=== PATIENT | female | born 1935 | race Caucasian/White ===

== ENCOUNTER → 2020-09-30 | Outpatient (CLI) | payer MEDICARE ==
--- NOTE | 2020-09-30 13:32 | US ---
EXAMINATION TYPE: US carotid duplex BILAT DATE OF EXAM: 09/30/2020 COMPARISON: NONE CLINICAL HISTORY: Z87.898 Personal history of other specified.... TIA, syncope EXAM MEASUREMENTS: RIGHT: Peak Systolic Velocity (PSV) cm/sec ----- Right CCA: 59.2 ----- Right ICA: 71.3 ----- Right ECA: 62.0 ICA/CCA ratio: 1.2 RIGHT: End Diastole cm/sec ----- Right CCA: 12.6 ----- Right ICA: 18.2 ----- Right ECA: 4.2 LEFT: Peak Systolic Velocity (PSV) cm/sec ----- Left CCA: 79.0 ----- Left ICA: 65.6 ----- Left ECA: 54.9 ICA/CCA ratio: 0.8 LEFT: End Diastole cm/sec ----- Left CCA: 14.1 ----- Left ICA: 17.9 ----- Left ECA: 0.0 VERTEBRALS (direction of flow): Right Vertebral: Antegrade Left Vertebral: Antegrade Rhythm: Normal Bilateral intimal thickening, no elevated velocities, no significant stenosis. IMPRESSION: 1. Bilateral intimal thickening with no significant hemodynamic stenosis. Criteria for Assigning % of Stenosis / Diameter reduction (Estimation based on the indirect measurements of the internal carotid artery velocities (ICA PSV). 1. Normal (no stenosis)=ICA PSV < 125 cm/s: ratio < 2.0: ICA EDV<40 cm/s. 2. Less than 50% stenosis=ICA PSV < 125 cm/s: ratio < 2.0: ICA EDV<40 cm/s. 3. 50 to 69% stenosis=ICA PSV of 125 to 230 cm/s: ration 2.0 ? 4.0: ICA EDV 40-100 cm/s. 4. Greater than 70% stenosis to near occlusion= ICA PSV > 230 cm/s: ratio > 4.0: ICA EDV > 100 cm/s. 5. Near occlusion= ICA PSV velocities may be low or undetectable: variable ratio and ICA EDV. 6. Total occlusion=unable to detect flow.
--- NOTE | 2020-09-30 14:15 | ECHOF ---
Referral Reason:Z87.898 Personal history of other specified... MEASUREMENTS -------- HEIGHT: 162.6 cm WEIGHT: 68.0 kg BP: IVSd: 1.1 cm (0.6 - 1.1) LVIDd: 4.5 cm (3.9 - 5.3) LVPWd: 1.1 cm (0.6 - 1.1) IVSs: 1.9 cm LVIDs: 3.5 cm LVPWs: 1.1 cm LAESV Index (A-L): 23.23 ml/m Ao Diam: 2.9 cm (2.0 - 3.7) AV Cusp: 1.6 cm (1.5 - 2.6) LA Diam: 2.4 cm (2.7 - 3.8) MV EXCURSION: 18.395 mm (> 18.000) MV EF SLOPE: 33 mm/s (70 - 150) EPSS: 3.5 cm MV E Hermelindo: 0.53 m/s MV DecT: 374 ms MV A Hermelindo: 0.59 m/s MV E/A Ratio: 0.89 AR PHT: 925 ms RAP: 5.00 mmHg RVSP: 29.74 mmHg FINDINGS -------- This was a technically adequate study. The left ventricular size is normal. Left ventricular wall thickness is normal. Overall left vent ricular systolic function is mild-moderately impaired with, an EF between 40 - 45 %. Normal LAP. Gr annamaria 1 Diastolic Dysfunction. Basal inferoseptal LV wall motion is hypokinetic. Mid anteroseptal LV wall motion is hypokinetic. Apical septum LV wall motion is hypokinetic. The right ventricle is normal in size. The left atrial size is normal. Normal LA size by volume 22+/-6 ml/m2. The right atrial size is normal. Aortic valve is trileaflet and is mildly thickened. There is mild aortic regurgitation. The mitral valve is normal. Mild mitral regurgitation is present. The tricuspid valve appears structurally normal. Mild tricuspid regurgitation present. Right vent ricular systolic pressure is normal at < 35 mmHg. Trace/mild (physiologic) pulmonic regurgitation. The aortic root size is normal. Normal inferior vena cava with normal inspiratory collapse consistent with estimated right atrial pre ssure of 5 mmHg. There is a small, generalized pericardial effusion present. CONCLUSIONS -------- 1. The left ventricular size is normal. 2. Left ventricular wall thickness is normal. 3. Overall left ventricular systolic function is mild-moderately impaired with, an EF between 40 - 45 %. 4. Normal LAP. Grade 1 Diastolic Dysfunction. 5. Basal inferoseptal LV wall motion is hypokinetic. 6. Mid anteroseptal LV wall motion is hypokinetic. 7. Apical septum LV wall motion is hypokinetic. 8. Aortic valve is trileaflet and is mildly thickened. 9. There is mild aortic regurgitation. 10. Mild mitral regurgitation is present. 11. Mild tricuspid regurgitation present. 12. Trace/mild (physiologic) pulmonic regurgitation. 13. There is a small, generalized pericardial effusion present. TRACTOR OPERATOR [employer]AS[employer]EVELING: Ramona Pimentel RDCS
== END | disposition home or self-care (01) ==
LOC: RADECHMAIN 12:10
PROVIDERS: ATTEND Internal Medicine Cardiovascular Disease
DX: I31.3 Pericardial effusion (noninflammatory) (principal); I08.3 Combined rheumatic disorders of mitral, aortic and tricuspid valves; I37.1 Nonrheumatic pulmonary valve insufficiency; I50.1 Left ventricular failure, unspecified; I50.30 Unspecified diastolic (congestive) heart failure; I77.89 Other specified disorders of arteries and arterioles; Z87.898 Personal history of other specified conditions
CPT/HCPCS: 93306; 93880

== ENCOUNTER → 2020-10-26 | Outpatient (CLI) | payer MEDICARE ==
--- NOTE | 2020-10-26 14:27 | MR ---
EXAMINATION TYPE: MR brain wo/w con DATE OF EXAM: 10/26/2020 COMPARISON: NONE HISTORY: Left side weakness, memory loss, history of colon cancer 25 years ago TECHNIQUE: Multiplanar, multisequence images of the brain and brainstem is performed without and with IV contras t, utilizing 7 mL intravenous Gadavist . FINDINGS: Exam slightly suboptimal due to motion artifact degradation. Diffusion weighted images demo nstrate no evidence of a recent infarct or other diffusion abnormality. There is no worrisome extra- axial fluid collection. There is diffuse ventricular and sulcal prominence. There are focal and confl uent areas of T2 hyperintensity greatest in the deep and periventricular white matter. Midline structures demonstrate normal morphology. Corpus callosal thinning is seen. The craniocervica l junction appears within normal limits. Post contrast images demonstrate fairly homogeneous enhanci ng 1.6 cm left frontal extra-axial lesion consistent with meningioma sagittal image 43. Local mass ef fect is present. No suspicious enhancing intraparenchymal masses. The visualized sinuses are clear. A rtifact distorts the level of bilateral globes. IMPRESSION: There is [id number] diffuse cerebral atrophy with advanced chronic small vessel isc hemic changes. There is incidental 1.6 cm left frontal meningioma with local mass effect. No suspicio us enhancing intraparenchymal masses.
== END | disposition home or self-care (01) ==
LOC: RADMRIMAIN 12:50
PROVIDERS: ATTEND Neurological Surgery
DX: I67.82 Cerebral ischemia (principal); G31.9 Degenerative disease of nervous system, unspecified; D32.9 Benign neoplasm of meninges, unspecified
CPT/HCPCS: 70553; A9585

== ENCOUNTER 2021-06-26 11:33 | Emergency (ER) | payer MEDICARE ==
[2021-06-26 11:51] LABS: Basophils # (A) 0.1 k/uL (0-0.2); Basophils % (A) 1 %; Eosinophils # (A) 0.1 k/uL (0-0.7); Eosinophils % (A) 1 %; HCT 35.2 % (34.0-46.0); HGB 11.7 gm/dL (11.4-16.0); Lymphocytes # (A) 1.9 k/uL (1.0-4.8); Lymphocytes % (A) 32 %; MCH 27.5 pg (25.0-35.0); MCHC 33.3 g/dL (31.0-37.0); MCV 82.7 fL (80.0-100.0); Monocytes # (A) 0.3 k/uL (0-1.0); Monocytes % (A) 5 %; Neutrophils # (A) 3.4 k/uL (1.3-7.7); Neutrophils % (A) 58 %; Platelet Count 160 k/uL (150-450); RBC 4.26 m/uL (3.80-5.40); RDW 13.4 % (11.5-15.5); WBC 5.9 k/uL (3.8-10.6)
--- NOTE | 2021-06-26 12:02 | ED ---
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 Family states that the patient had complete weakness and facial droop on her left side which started around 10:45 AM. Patient had some slurred speech. Mild confusion. She is on Eliquis however family is unsure why. She took her dose last night and has not missed any doses. They state that it could be due to her previous history of CVA however they do believe that she has had a history of DVT as well. Patient is a poor historian and used to live in [place]. They recently became involved in her care. She has not had any fevers or recent head trauma. No history of hemorrhagic stroke. She denies any chest pain or shortness of breath. The patient is a very poor historian and therefore the HPI is limited - Related Data Home Medications: Home Medications Medication Instructions Recorded Confirmed Apixaban [Eliquis] 5 mg PO HS 06/26/21 06/26/21 Ascorbic Acid [Vitamin C] 500 mg PO DAILY 06/26/21 06/26/21 Cholecalciferol [Vitamin D3 (25 25 mcg PO DAILY 06/26/21 06/26/21 Mcg = 1000 Iu)] Loratadine [Claritin] 10 mg PO HS 06/26/21 06/26/21 Metoprolol Tartrate [Lopressor] 25 mg PO BID 06/26/21 06/26/21 Metoprolol Tartrate [Lopressor] 50 mg PO BID 06/26/21 06/26/21 Olmesartan Medoxomil 40 mg PO DAILY 06/26/21 06/26/21 Rosuvastatin [Crestor] 20 mg PO HS 06/26/21 06/26/21 Allergies/Adverse Reactions: Allergies Allergy/AdvReac Type Severity Reaction Status Date / Time No Known Allergies Allergy Verified 06/26/21 12:33 Review of Systems ROS Statement: Those systems with pertinent positive or pertinent negative responses have been documented in the HPI. ROS Other: All systems not noted in ROS Statement are negative. General Exam Limitations: altered mental status General appearance: alert Head exam: Present: atraumatic, normocephalic, other (left facial droop) Eye exam: Present: PERRL, other (hemineglect on the left). Absent: scleral icterus, conjunctival injection, periorbital swelling ENT exam: Present: normal exam, mucous membranes moist Neck exam: Present: normal inspection. Absent: tenderness, meningismus, lymphadenopathy Respiratory exam: Present: normal lung sounds bilaterally. Absent: respiratory distress, wheezes, rales, rhonchi, stridor Cardiovascular Exam: Present: regular rate, normal rhythm, normal heart sounds. Absent: systolic murmur, diastolic murmur, rubs, gallop, clicks GI/Abdominal exam: Present: soft, normal bowel sounds. Absent: distended, tenderness, guarding, rebound, rigid Extremities exam: Present: other (drift left upper and left lower extremity. Decreased endoscopic technician strength in the left hand.) Neurological exam: Present: alert, oriented X3 Psychiatric exam: Present: normal affect, normal mood Skin exam: Present: warm, dry, intact, normal color. Absent: rash Stroke MDM - Lab Data Result diagrams: 06/26/21 11:37 06/26/21 11:37 Lab Results 06/26/21 06/26/21 06/26/21 Range/Units 11:37 11:37 11:37 WBC 5.9 (3.8-10.6) k/uL RBC 4.26 (3.80-5.40) m/uL Hgb 11.7 (11.4-16.0) gm/dL Hct 35.2 (34.0-46.0) % MCV 82.7 (80.0-100.0) fL MCH 27.5 (25.0-35.0) pg MCHC 33.3 (31.0-37.0) g/dL RDW 13.4 (11.5-15.5) % Plt Count 160 (150-450) k/uL MPV 9.0 Neutrophils % 58 % Lymphocytes % 32 % Monocytes % 5 % Eosinophils % 1 % Basophils % 1 % Neutrophils # 3.4 (1.3-7.7) k/uL Lymphocytes # 1.9 (1.0-4.8) k/uL Monocytes # 0.3 (0-1.0) k/uL Eosinophils # 0.1 (0-0.7) k/uL Basophils # 0.1 (0-0.2) k/uL PT 10.4 (9.0-12.0) sec INR 1.0 (<1.2) APTT 22.3 (22.0-30.0) sec Sodium 138 (137-145) mmol/L Potassium 4.1 (3.5-5.1) mmol/L Chloride 109 H (98-107) mmol/L Carbon Dioxide 22 (22-30) mmol/L Anion Gap 7 mmol/L BUN 23 H (7-17) mg/dL Creatinine 0.89 (0.52-1.04) mg/dL Est GFR (CKD-EPI)AfAm 68 (>60 ml/min/1.73 sqM) Est GFR (CKD-EPI)NonAf 59 (>60 ml/min/1.73 sqM) Glucose 96 (74-99) mg/dL Calcium 9.5 (8.4-10.2) mg/dL Total Bilirubin 0.6 (0.2-1.3) mg/dL AST 27 (14-36) U/L ALT 19 (4-34) U/L Alkaline Phosphatase 49 (38-126) U/L Troponin I (0.000-0.034) ng/mL Total Protein 6.2 L (6.3-8.2) g/dL Albumin 3.9 (3.5-5.0) g/dL 06/26/21 Range/Units 11:37 WBC (3.8-10.6) k/uL RBC (3.80-5.40) m/uL Hgb (11.4-16.0) gm/dL Hct (34.0-46.0) % MCV (80.0-100.0) fL MCH (25.0-35.0) pg MCHC (31.0-37.0) g/dL RDW (11.5-15.5) % Plt Count (150-450) k/uL MPV Neutrophils % % Lymphocytes % % Monocytes % % Eosinophils % % Basophils % % Neutrophils # (1.3-7.7) k/uL Lymphocytes # (1.0-4.8) k/uL Monocytes # (0-1.0) k/uL Eosinophils # (0-0.7) k/uL Basophils # (0-0.2) k/uL PT (9.0-12.0) sec INR (<1.2) APTT (22.0-30.0) sec Sodium (137-145) mmol/L Potassium (3.5-5.1) mmol/L Chloride (98-107) mmol/L Carbon Dioxide (22-30) mmol/L Anion Gap mmol/L BUN (7-17) mg/dL Creatinine (0.52-1.04) mg/dL Est GFR (CKD-EPI)AfAm (>60 ml/min/1.73 sqM) Est GFR (CKD-EPI)NonAf (>60 ml/min/1.73 sqM) Glucose (74-99) mg/dL Calcium (8.4-10.2) mg/dL Total Bilirubin (0.2-1.3) mg/dL AST (14-36) U/L ALT (4-34) U/L Alkaline Phosphatase (38-126) U/L Troponin I <0.012 (0.000-0.034) ng/mL Total Protein (6.3-8.2) g/dL Albumin (3.5-5.0) g/dL - Medical Decision Making Upon arrival the patient was placed into trauma bay 1. Thorough history and physical exam was performed. NIH is noted to be 16. Patient has weakness in the left upper extremity, left lower extremity. She has complete antoine-neglect of her left visual field and left-sided facial droop. Patient immediately goes over for CT and CT angiography. Imaging is reviewed. Patient does have a left temporal meningioma. No acute occlusion, significant stenosis, large aneurysm o r dissection. I did speak with the radiologist in regards to these reads. I also spoke with Dr. Muniz. He reports that the patient is not a TPA candidate as she is already on anticoagulation. There is no large vessel occlusion. The patient is reevaluated and does have an NIH which has improved to 4. I did discuss results with family. The patient does have deterioration in her condition and returns to having an NIH of 14 with left hemiparesis. Only the strength in her left upper extremity is preserved at this time. I did call and speak with Dr. Muniz who believes that this is not stroke related but seizure related. Because of this the patient is given 500 mg of Keppra. I dis cussed diagnosis, differential treatment options. At this time the patient is requesting transfer to [facility] as she has see Dr. Bustillos in office for her history of strokes and vascular dementia. The patient is originally accepted at their facility however the family then changestheir mind and state that they want to go to [facility]. [facility] transfer is cancelled. I spoke with Dr. Gay at [facility] stating that patients familys request is transferred to their facility. She does accept transfer and patient is transfer in stable condition with NIH of 14. EKG demonstrates a normal sinus rhythm with a ventricular rate of 61. [place] interval 122. QRS 156. QTC of 475. Left bundle branch block. Negative for sgarbossa criteria 06/26/21 12:54 Course Vital Signs 06/26/21 06/26/21 06/26/21 11:58 12:21 12:30 Temperature 97.5 F L Pulse Rate 57 L 55 L 55 L Respiratory 18 23 26 H Rate Blood Pressure 102/74 121/73 121/73 O2 Sat by Pulse 97 98 94 L Oximetry 06/26/21 06/26/21 06/26/21 12:42 12:45 13:00 Temperature Pulse Rate 55 L 55 L 57 L Respiratory 18 22 22 Rate Blood Pressure 141/111 141/111 137/119 O2 Sat by Pulse 96 97 96 Oximetry 06/26/21 06/26/21 06/26/21 13:15 13:30 13:33 Temperature Pulse Rate 57 L 57 L 58 L Respiratory 18 23 18 Rate Blood Pressure 148/67 145/62 151/84 O2 Sat by Pulse 94 L 96 Oximetry 06/26/21 06/26/21 13:45 14:00 Temperature Pulse Rate 57 L 55 L Respiratory 22 22 Rate Blood Pressure 151/84 154/69 O2 Sat by Pulse 94 L 95 Oximetry - Reevaluation(s) Reevaluation #1: 06/26/21 12:[address] Muniz - not a TPA candidate due to already on anticoagulation Reevaluation #2: Spoke with radiologist the CT of the head is negative. No occlusion 06/26/21 12:28 Reevaluation #3: Patient has recurrence left-sided hemiparesis. NIH score is 14. Dr. Muniz paged. Call returned - believes symptoms are more consistent with seizure activity over stroke 06/26/21 12:40 Disposition Clinical Impression: Cerebrovascular accident (CVA) Disposition: OTHER INSTITUTION NOT DEFINED Condition: Stable Is patient prescribed a controlled substance at d/c from ED?: No Referrals: Idania Infante MD [Primary Care Provider] - 1-2 days - Out of Hospital Transfer - Req. Specs Out of Hospital Transfer - Requested Specifics: Other Emergency Center ([address])
[2021-06-26 12:08] LABS: Albumin 3.9 g/dL (3.5-5.0); Calcium 9.5 mg/dL (8.4-10.2); Total Bilirubin 0.6 mg/dL (0.2-1.3); Total Protein 6.2 g/dL (6.3-8.2)
[2021-06-26 12:10] LABS: Partial Thromboplastin Time 22.3 sec (22.0-30.0); Prothrombin Time 10.4 sec (9.0-12.0)
[2021-06-26 12:11] VITALS: TEMP 97.5
[2021-06-26 12:24] LABS: Potassium 4.1 mmol/L (3.5-5.1)
--- NOTE | 2021-06-26 12:35 | CT ---
EXAMINATION TYPE: CT brain wo con for TPA. CT angiogram head and neck. DATE OF EXAM: 06/26/2021 COMPARISON: None HISTORY: CODE STROKE. Complete left hemiparesis. Symptoms resolved at time of dictation per emergency department provider. TECHNIQUE: CT scan of the head without contrast CT DLP: 1096.8 mGycm Automated exposure control for dose reduction was used. FINDINGS: CT head without contrast: No evidence for acute intracranial hemorrhage, midline shift or mass effect. Llamas-white matter differ entiation is preserved. Posterior fossa contents are acutely intact. There is an extra-axial predominantly calcified mass along the left frontal convexity likely represen ting a meningioma. There is generalized brain volume loss with prominence of the ventricles and CSF spaces. There is sim dence for chronic microvascular ischemic changes and bilateral basal ganglia lacunar infarcts. No acute intraorbital, osseous or soft tissue abnormality seen. Paranasal sinuses and mastoid air cells are well aerated. Atherosclerotic calcifications are seen in the intracranial internal carotid arteries. CT angiogram head and neck: Atherosclerotic calcifications are seen in the intrathoracic aorta aortic arch. Soft and calcific shania ques are present at the region of the right brachiocephalic artery, left common carotid artery and le ft subclavian artery. There is mild narrowing at the bilateral carotid bifurcation. The right external carotid artery is mi ldly narrowed but patent. Internal carotid arteries extracranial segments are. Both vertebral arterie s are patent and codominant. The proximal segments of the bilateral CARLEEN, MCA and senior marketing engineer are patent. There is origin of the rig ht CONTRACT SPECIALIST. Left posterior communicating artery is patent. No obvious intracranial aneurysm or evidence o f dissection. The thyroid gland is multinodular and has some calcifications. Lung apices are glossy are unremarkabl e. Parapharyngeal fat is maintained. No cervical lymphadenopathy. Mild scoliosis seen in the spine. Mild to moderate degenerative changes are also noted in the spine s uboptimal in evaluation due to technique. No acute displaced fracture. IMPRESSION: 1. NO EVIDENCE OF ACUTE INTRACRANIAL HEMORRHAGE OR MASS EFFECT. 2. CALCIFIED LEFT EXTRA-AXIAL MASS LIKELY MENINGIOMA. 3. NO ACUTE OCCLUSION, SIGNIFICANT STENOSIS, LARGE ANEURYSM OR OBVIOUS DISSECTION IN THE CERVICAL OF MONTES TO EXPLAIN PATIENT'S SYMPTOMS. 4. MILD NARROWING AT THE BILATERAL CAROTID BIFURCATION AND PROXIMAL INTERNAL CAROTID ARTERY SECONDARY TO SOFT AND CALCIFIC PLAQUES. I called the emergency department provider at time of dictation to discuss case. This was at 12:25 PM 06/26/2021.
[2021-06-26] MEDS ORDERED: levETIRAcetam IV 500 MG in SODIUM CHLORIDE 0.9% 100 ML IVPB STA (13:27)
[2021-06-26] MEDS ORDERED: ASPIRIN 325 MG TAB PO STA (13:28)
[2021-06-26] MEDS ORDERED: SODIUM CHLORIDE 0.9% 1,000 ML IV SCH (13:30)
[2021-06-26] MEDS ORDERED: ATORVASTATIN 40 MG TAB PO STA (14:10)
--- NOTE | 2021-06-26 14:18 | XR ---
EXAMINATION TYPE: XR chest 2V DATE OF EXAM: 06/26/2021 COMPARISON: None HISTORY: 86-year-old female confusion, altered mental status TECHNIQUE: AP and lateral views FINDINGS: Heart is upper limits of normal in size. Atherosclerotic calcifications. Diffuse interstitial promine nce. No consolidation or pleural effusion. IMPRESSION: Interstitial density could in part related to body habitus and portable technique. Correlate to exclu de bronchitis, chronic asthma, or early atypical pneumonia.
[2021-06-26 15:49] VITALS: BP 154/71; PULSE 51; RESP 23
== END 2021-06-26 15:47 | disposition other institution (70) ==
LOC: EC 11:33
DX: I63.9 Cerebral infarction, unspecified (principal); R29.716 NIHSS score 16; F03.90 Unspecified dementia, unspecified severity, without behavioral disturbance, psychotic disturbance, mood disturbance, and anxiety; Z79.01 Long term (current) use of anticoagulants; Z79.899 Other long term (current) drug therapy
CPT/HCPCS: 36415; 93005; 80053; 84484; 85025; 85610; 85730; 71046; 70496; 70450; 70498; 96365; 99285; J1953; Q9967

== ENCOUNTER → 2021-10-05 | Outpatient (CLI) | payer MEDICARE | END | disposition home or self-care (01) | LOC: RADCTMAIN 14:08 | PROVIDERS: ATTEND Internal Medicine Cardiovascular Disease | DX: Z53.9 Procedure and treatment not carried out, unspecified reason (principal) ==

== ENCOUNTER 2022-10-12 14:26 | Emergency (ER) | payer MEDICARE ==
[2022-10-12 15:11] VITALS: BP 171/64; PULSE 88; RESP 18; TEMP 98.4
--- NOTE | 2022-10-12 15:35 | XR ---
EXAMINATION TYPE: XR chest 2V DATE OF EXAM: 10/12/2022 COMPARISON: 06/26/21 HISTORY: Shortness of breath TECHNIQUE: Frontal and lateral views of the chest are obtained. FINDINGS: Scattered senescent parenchymal changes noted. Hyperinflation compatible with COPD. No evidence for infiltrate. No evidence for atelectasis. Heart size is stable. Mediastinal structures are stable and grossly unremarkable. No evidence for hilar prominence. Degenerative changes dorsal spine. IMPRESSION: 1. No evidence for acute pulmonary disease.
--- NOTE | 2022-10-12 18:16 | ED ---
General Adult HPI - General Chief complaint: Upper Respiratory Infection Stated complaint: Fever,Congestion,Covid+ Time Seen by Provider: 10/12/22 17:49 Source: patient Mode of arrival: ambulatory Limitations: no limitations - History of Present Illness Initial comments: This is an 87-year-old female who was brought into the emergency department by her daughter for a cough. The patient reported that she stated she had a cough for the last 1 week and seemed worse over the last 1 day so she went to be seen in the emergency department. The patient did have a home over 19 test that was positive so she came to emergency department to make sure he was okay. The patient does live in an assisted living facility with 3 other residents reportedly been seen for a cough today. The patient was however resting in bed comfortably without any acute pain or distress. The patient did not have any tachypnea, shortness of breath nor any complaints. The patient denied any fevers and chills. - Related Data Home Medications Medication Instructions Recorded Confirmed Apixaban [Eliquis] 5 mg PO HS 06/26/21 06/26/21 Ascorbic Acid [Vitamin C] 500 mg PO DAILY 06/26/21 06/26/21 Cholecalciferol [Vitamin D3 (25 25 mcg PO DAILY 06/26/21 06/26/21 Mcg = 1000 Iu)] Loratadine [Claritin] 10 mg PO HS 06/26/21 06/26/21 Metoprolol Tartrate [Lopressor] 25 mg PO BID 06/26/21 06/26/21 Metoprolol Tartrate [Lopressor] 50 mg PO BID 06/26/21 06/26/21 Olmesartan Medoxomil 40 mg PO DAILY 06/26/21 06/26/21 Rosuvastatin [Crestor] 20 mg PO HS 06/26/21 06/26/21 Allergies Allergy/AdvReac Type Severity Reaction Status Date / Time No Known Allergies Allergy Verified 10/12/22 15:11 Review of Systems ROS Statement: Those systems with pertinent positive or pertinent negative responses have been documented in the HPI. ROS Other: All systems not noted in ROS Statement are negative. Past Medical History Past Medical History: CVA/TIA, Dementia, Pneumonia Additional Past Medical History / Comment(s): cva x 2 History of Any Multi-Drug Resistant Organisms: None Reported Past Surgical History: Appendectomy, Joint Replacement, Orthopedic Surgery Past Psychological History: No Psychological Hx Reported Smoking Status: Former smoker Past Alcohol Use History: Rare Past Drug Use History: None Reported General Exam Limitations: no limitations General appearance: alert, in no apparent distress Head exam: Present: atraumatic, normocephalic Eye exam: Present: normal appearance, PERRL Pupils: Present: normal accommodation ENT exam: Present: normal exam, normal oropharynx, mucous membranes moist Neck exam: Present: normal inspection, full ROM Respiratory exam: Present: normal lung sounds bilaterally Cardiovascular Exam: Present: regular rate, normal rhythm, normal heart sounds GI/Abdominal exam: Present: soft, normal bowel sounds Extremities exam: Present: normal inspection, full ROM Back exam: Present: normal inspection, full ROM Neurological exam: Present: alert, oriented X3, CN II-XII intact Psychiatric exam: Present: normal affect, normal mood Skin exam: Present: warm, dry Course Vital Signs 10/12/22 15:07 Temperature 98.4 F Pulse Rate 88 Respiratory 18 Rate Blood Pressure 171/64 O2 Sat by Pulse 98 Oximetry Medical Decision Making - Medical Decision Making The patient was seen and evaluated emergency department. Physical exam, the patient was resting in bed without any acute distress. Vital signs admission were stable and within normal limits. Laboratory workup was obtained and a chest x-ray was also obtained in triage. The patient was COVID-19 positive and chest x-ray did not show any intrathoracic pathology. Due to the patient's normal vital signs and in no further complaints, the patient was deemed stable for discharge. The patient and her daughter were advised to continue to monitor the patient's respiratory status as well as oxygen saturation. She was living in an assisted living facility and the daughter was told to relay this message to the facility. The patient and her daughter had all their questions answered appropriately. They're also advised report back to the emergency department if she any worsening shortness of breath or difficulty breathing. They're agreeable to this and all her questions were answered. The patient was discharged home in stable condition. - Lab Data Lab Results 10/12/22 Range/Units 15:16 Influenza Type A (PCR) Not Detected (Not Detectd) Influenza Type B (PCR) Not Detected (Not Detectd) RSV (PCR) Not Detected (Not Detectd) SARS-CoV-2 (PCR) Detected A (Not Detectd) Disposition Clinical Impression: COVID-19 Disposition: HOME SELF-CARE Condition: Stable Instructions (If sedation given, give patient instructions): COVID-19 (Coronavirus Disease 2019) (ED) Is patient prescribed a controlled substance at d/c from ED?: No Referrals: Petros Argueta MD [Primary Care Provider] - 1-2 days Time of Disposition: 18:10
== END 2022-10-12 18:21 | disposition home or self-care (01) ==
LOC: EC 14:26
DX: U07.1 COVID-19 (principal); I63.9 Cerebral infarction, unspecified; Z87.891 Personal history of nicotine dependence
CPT/HCPCS: 71046; 87636; 99283

== ENCOUNTER → 2022-12-05 | Outpatient (CLI) | payer MEDICARE ==
--- NOTE | 2022-12-05 16:30 | MR ---
EXAMINATION TYPE: MR brain wo/w con DATE OF EXAM: 12/05/2022 COMPARISON: Prior MRI October 26, 2020 HISTORY: F/U comparison meningioma, memory loss. TECHNIQUE: Multiplanar, multisequence images of the brain and brainstem is performed without and with IV contras t, utilizing 7 mL intravenous Gadavist . FINDINGS: Diffusion weighted images demonstrate no evidence of a recent infarct or other diffusion ab normality. There is moderate moderate ventricular and sulcal prominence redemonstrated. There are se enoch focal and confluent areas of T2 hyperintensity throughout the white matter redemonstrated. Midline structures redemonstrate normal morphology. The craniocervical junction remains within sariah l limits. Post contrast images redemonstrate peripheral 1.5 x 1.4 cm homogeneous enhancing mass cons istent with meningioma left frontal region axial image 22. The dural venous sinuses remaining patent. The visualized sinuses are clear and the globes are intact. IMPRESSION: Moderate diffuse cerebral atrophy and severe chronic small vessel ischemic change redemon strated. There is 1.5 cm peripheral left frontal meningioma are redemonstrated. No significant change from prior MRI.
== END | disposition home or self-care (01) ==
LOC: RADMRIMAIN 15:18
PROVIDERS: ATTEND Psychiatry & Neurology Neurology
DX: D32.0 Benign neoplasm of cerebral meninges (principal); G31.9 Degenerative disease of nervous system, unspecified; I67.82 Cerebral ischemia; F01.50 Vascular dementia, unspecified severity, without behavioral disturbance, psychotic disturbance, mood disturbance, and anxiety; R41.3 Other amnesia
CPT/HCPCS: 70553; A9585

== ENCOUNTER 2023-03-03 15:28 | Emergency (ER) | payer MEDICARE ==
[2023-03-03] MEDS ORDERED: SODIUM CHLORIDE 0.9% 500 ML 500 ML IV STA (15:34)
[2023-03-03 15:37] VITALS: RESP 16
[2023-03-03 15:42] LABS: Glucose,Whole Blood 148 mg/dL (70-110)
--- NOTE | 2023-03-03 15:45 | ED ---
General Adult HPI - General Chief complaint: Neuro Symptoms/Deficit Stated complaint: TIA Time Seen by Provider: 03/03/23 15:34 Source: patient, EMS, RN notes reviewed, old records reviewed Mode of arrival: EMS Limitations: no limitations - History of Present Illness Initial comments: 87 yo female presenting with chief complaint of lightheadedness and worsening left-sided facial droop. Patient has previous history of CVA with residual left-sided facial droop and this was noted at about 1 PM to be worse than normal. Patient states she was lightheaded at this time. No headache. No chest pain. No limb numbness or weakness. 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 - Related Data Home Medications Medication Instructions Recorded Confirmed Apixaban [Eliquis] 5 mg PO BID 06/26/21 03/03/23 Ascorbic Acid [Vitamin C] 1,000 mg PO DAILY 06/26/21 03/03/23 Cholecalciferol [Vitamin D3 (25 50 mcg PO DAILY 06/26/21 03/03/23 Mcg = 1000 Iu)] Loratadine [Claritin] 10 mg PO DAILY PRN 06/26/21 03/03/23 Metoprolol Tartrate [Lopressor] 25 mg PO BID 06/26/21 03/03/23 Aspirin EC [Ecotrin Low Dose] 81 mg PO HS 03/03/23 03/03/23 Rosuvastatin Calcium 5 mg PO HS 03/03/23 03/03/23 Sacubitril/Valsartan [Entresto 24 1 tab PO BID 03/03/23 03/03/23 mg-26 mg Tablet] Allergies Allergy/AdvReac Type Severity Reaction Status Date / Time No Known Allergies Allergy Verified 03/03/23 15:39 Review of Systems ROS Statement: Those systems with pertinent positive or pertinent negative responses have been documented in the HPI. ROS Other: All systems not noted in ROS Statement are negative. Past Medical History Past Medical History: CVA/TIA, Dementia, Pneumonia Additional Past Medical History / Comment(s): cva x 2 History of Any Multi-Drug Resistant Organisms: None Reported Past Surgical History: Appendectomy, Joint Replacement, Orthopedic Surgery Past Psychological History: No Psychological Hx Reported Smoking Status: Former smoker Past Alcohol Use History: Rare Past Drug Use History: None Reported General Exam Limitations: no limitations General appearance: alert, in no apparent distress Head exam: Present: atraumatic, normocephalic Eye exam: Present: normal appearance, PERRL, EOMI ENT exam: Present: normal exam Neck exam: Present: normal inspection. Absent: tenderness Respiratory exam: Present: normal lung sounds bilaterally. Absent: respiratory distress, wheezes Cardiovascular Exam: Present: regular rate, normal rhythm GI/Abdominal exam: Present: soft. Absent: distended, tenderness, guarding Extremities exam: Present: normal inspection, normal capillary refill. Absent: pedal edema Neurological exam: Present: alert, oriented X3, other (NIH of 1 which is baseline, for mild left-sided facial droop. Normal speech.) Psychiatric exam: Present: normal affect, normal mood Skin exam: Present: warm, dry, intact Course Vital Signs 03/03/23 15:31 Temperature 97.4 F L Pulse Rate 82 Respiratory 16 Rate Blood Pressure 152/65 O2 Sat by Pulse 96 Oximetry EKG Findings - EKG Comments: EKG Findings:: EKG: Sinus rhythm with left bundle branch block, history of left bundle branch block, rate of 79, SD interval 174, QRS duration 165, QTC 453 no acute change compared to prior. Medical Decision Making - Medical Decision Making Was pt. sent in by a medical professional or institution (, PA, ICE DELIVERY DRIVER, urgent care, hospital, or halfway...) When possible be specific @ -No Did you speak to anyone other than the patient for history (EMS, parent, family, police, friend...)? What history was obtained from this source @ -Case discussed with paramedics and patient's daughter who is at bedside Did you review nursing and triage notes (agree or disagree)? Why? @ -I reviewed and agree with nursing and triage notes Were old charts reviewed (outside hosp., previous admission, EMS record, old EKG, old radiological studies, urgent care reports/EKG's, halfway records)? Report findings @ -Reviewed previous admissions Differential Diagnosis (chest pain, altered mental status, abdominal pain women, abdominal pain men, vaginal bleeding, weakness, fever, dyspnea, syncope, heada andrew, dizziness, GI bleed, back pain, seizure, CVA, palpatations, mental health, musculoskeletal)? @ -Differential CVA Ischemic stroke, hemorrhagic stroke, brain tumor, atypical migraine, Wernicke's encephalopathy, seizure, multiple sclerosis, meningitis, encephalitis, hypoglycemia, Guillain-Amado, electrolytes disturbance, myasthenia gravis.... This is not meant to be an all-inclusive list EKG interpreted by me (3pts min.). @ -As above X-rays interpreted by me (1pt min.). @ -Chest x-ray negative for acute cardiopulmonary findings CT interpreted by me (1pt min.). @ -CT brain showing age-related changes without intracranial hemorrhage or mass effect, calcified meningioma, chronic small vessel disease and age-related atrophy U/S interpreted by me (1pt. min.). @ -None done What testing was considered but not performed or refused? (CT, X-rays, U/S, labs)? Why? @ -None What meds were considered but not given or refused? Why? @ -None Did you discuss the management of the patient with other professionals (professionals i.e. , PA, ICE DELIVERY DRIVER, lab, RT, psych nurse, social worker health services, wellfield technician, teacher, special technical operations officer, case management coordinator)? Give summary @ -No Was smoking cessation discussed for >3mins.? @ -No Was critical care preformed (if so, how long)? @ -No Were there social determinants of health that impacted care today? How? (Homelessness, low income, unemployed, alcoholism, drug addiction, transportation, low edu. Level, literacy, decrease access to med. care, custodial, rehab)? @ -No Was there de-escalation of care discussed even if they declined (Discuss DNR or withdrawal of care, Hospice)? DNR status @ -No What co-morbidities impacted this encounter? (DM, HTN, Smoking, COPD, CAD, Cancer, CVA, ARF, Chemo, Hep., AIDS, mental health diagnosis, sleep apnea, morbid obesity)? @ -CVA Was patient admitted / discharged? Hospital course, mention meds given and route, prescriptions, significant lab abnormalities, going to OR and other pertinent info. @ -[87-year-old female presenting with left-sided facial droop. Symptoms resolved prior to arrival. Patient has residual left-sided facial droop which is very subtle maximal NIH of 1. This does improve further on the emergency department. 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 Laboratory testing is unremarkable, chest x-ray and head CT are performed which are negative for any acute findings. I did offer observation of this patient however given the resolution of her symptoms and her current living situation family and patient are eager for discharge. Undiagnosed new problem with uncertain prognosis? @ -No Drug Therapy requiring intensive monitoring for toxicity (Heparin, Nitro, Insulin, Cardizem)? @ -No Were any procedures done? @ -No Diagnosis/symptom? @ -[TIA Acute, or Chronic, or Acute on Chronic? @ -[Acute Uncomplicated (without systemic symptoms) or Complicated (systemic symptoms)? @ -[Complicated Side effects of treatment? @ -No Exacerbation, Progression, or Severe Exacerbation? @ -No Poses a threat to life or bodily function? How? (Chest pain, [place], [place], pneumonia, PE, COPD, DKA, ARF, appy, cholecystitis, CVA, Diverticulitis, Homicidal, Suic idal, threat to staff... and all critical care pts) @ -Yes, recurrent CVA, cerebral ischemia, seizure, - Lab Data Result diagrams: 03/03/23 15:40 03/03/23 15:40 Lab Results 03/03/23 03/03/23 03/03/23 Range/Units 15:40 15:40 15:40 WBC 10.0 (3.8-10.6) k/uL RBC 4.58 (3.80-5.40) m/uL Hgb 11.2 L (11.4-16.0) gm/dL Hct 35.0 (34.0-46.0) % MCV 76.4 L (80.0-100.0) fL MCH 24.4 L (25.0-35.0) pg MCHC 32.0 (31.0-37.0) g/dL RDW 15.2 (11.5-15.5) % Plt Count 292 (150-450) k/uL MPV 7.2 Neutrophils % 75 % Lymphocytes % 19 % Monocytes % 4 % Eosinophils % 1 % Basophils % 0 % Neutrophils # 7.5 (1.3-7.7) k/uL Lymphocytes # 1.8 (1.0-4.8) k/uL Monocytes # 0.4 (0-1.0) k/uL Eosinophils # 0.1 (0-0.7) k/uL Basophils # 0.0 (0-0.2) k/uL Hypochromasia Slight Microcytosis Slight PT 10.3 (9.0-12.0) sec INR 1.0 (<1.2) APTT 22.3 (22.0-30.0) sec Sodium 140 (137-145) mmol/L Potassium 3.9 (3.5-5.1) mmol/L Chloride 103 (98-107) mmol/L Carbon Dioxide 29 (22-30) mmol/L Anion Gap 8 mmol/L BUN 24 H (7-17) mg/dL Creatinine 1.03 (0.52-1.04) mg/dL Est GFR (CKD-EPI)AfAm 57 (>60 ml/min/1.73 sqM) Est GFR (CKD-EPI)NonAf 49 (>60 ml/min/1.73 sqM) Glucose 105 H (74-99) mg/dL POC Glucose (mg/dL) (70-110) mg/dL POC Glu Industrial Hygenist ID Calcium 9.7 (8.4-10.2) mg/dL Total Bilirubin 0.5 (0.2-1.3) mg/dL AST 30 (14-36) U/L ALT 23 (4-34) U/L Alkaline Phosphatase 66 (38-126) U/L Troponin I (0.000-0.034) ng/mL Total Protein 6.6 (6.3-8.2) g/dL Albumin 4.1 (3.5-5.0) g/dL 03/03/23 03/03/23 Range/Units 15:40 15:50 WBC (3.8-10.6) k/uL RBC (3.80-5.40) m/uL Hgb (11.4-16.0) gm/dL Hct (34.0-46.0) % MCV (80.0-100.0) fL MCH (25.0-35.0) pg MCHC (31.0-37.0) g/dL RDW (11.5-15.5) % Plt Count (150-450) k/uL MPV Neutrophils % % Lymphocytes % % Monocytes % % Eosinophils % % Basophils % % Neutrophils # (1.3-7.7) k/uL Lymphocytes # (1.0-4.8) k/uL Monocytes # (0-1.0) k/uL Eosinophils # (0-0.7) k/uL Basophils # (0-0.2) k/uL Hypochromasia Microcytosis PT (9.0-12.0) sec INR (<1.2) APTT (22.0-30.0) sec Sodium (137-145) mmol/L Potassium (3.5-5.1) mmol/L Chloride (98-107) mmol/L Carbon Dioxide (22-30) mmol/L Anion Gap mmol/L BUN (7-17) mg/dL Creatinine (0.52-1.04) mg/dL Est GFR (CKD-EPI)AfAm (>60 ml/min/1.73 sqM) Est GFR (CKD-EPI)NonAf (>60 ml/min/1.73 sqM) Glucose (74-99) mg/dL POC Glucose (mg/dL) 148 H (70-110) mg/dL POC Glu Industrial Hygenist ID Colt Taylor Calcium (8.4-10.2) mg/dL Total Bilirubin (0.2-1.3) mg/dL AST (14-36) U/L ALT (4-34) U/L Alkaline Phosphatase (38-126) U/L Troponin I <0.012 (0.000-0.034) ng/mL Total Protein (6.3-8.2) g/dL Albumin (3.5-5.0) g/dL Disposition Clinical Impression: Transient cerebral ischemia Disposition: HOME SELF-CARE Condition: Fair Instructions (If sedation given, give patient instructions): Transient Ischemic Attack (ED) Is patient prescribed a controlled substance at d/c from ED?: No Referrals: Urmila Scanlon NPC [Family Provider] - 1-2 days Time of Disposition: 17:30
--- NOTE | 2023-03-03 16:06 | XR ---
EXAMINATION TYPE: XR chest 2V DATE OF EXAM: 03/03/2023 COMPARISON: 10/12/2022 HISTORY: Shortness of breath TECHNIQUE: Frontal and lateral views of the chest are obtained. FINDINGS: Scattered senescent parenchymal changes noted. Hyperinflation compatible with COPD. No evidence for infiltrate. Suspect small right-sided effusion. Mild linear atelectasis. Heart size is stable. Mediastinal structures are stable and grossly unremarkable. No evidence for hilar prominence. Degenerative changes dorsal spine. IMPRESSION: 1. No evidence for acute pulmonary disease.
--- NOTE | 2023-03-03 16:23 | CT ---
EXAMINATION TYPE: CT brain wo con DATE OF EXAM: 03/03/2023 COMPARISON: 06/26/2021 HISTORY: dizziness CT DLP: 1173.[address] of the brain was performed. The ventricles, basal cisterns and sulci overlying the cerebral convexities demonstrate mild enlargem ent. There is no evidence for intracranial hemorrhage or sulcal effacement. There is decreased attenuation about the periventricular white matter and deep white matter of both c erebral hemispheres, compatible with chronic small vessel ischemia. Differential diagnosis does inclu de demyelination. No mass effects are seen.No midline shift. Calcified left frontal meningioma redemonstrated. Osseous calvarium is intact. If symptoms persist consider MRI. IMPRESSION: 1. Age related atrophic and chronic small vessel ischemic change without acute intracranial process s een at this time.
[2023-03-03 16:31] LABS: Basophils % (A) 0 %; Eosinophils # (A) 0.1 k/uL (0-0.7); Eosinophils % (A) 1 %; HGB 11.2 gm/dL (11.4-16.0); Hypochromasia Slight; Lymphocytes # (A) 1.8 k/uL (1.0-4.8); Lymphocytes % (A) 19 %; MCH 24.4 pg (25.0-35.0); MCV 76.4 fL (80.0-100.0); Mean Platelet Volume 7.2; Microcytosis Slight; Monocytes # (A) 0.4 k/uL (0-1.0); Monocytes % (A) 4 %; Neutrophils # (A) 7.5 k/uL (1.3-7.7); Neutrophils % (A) 75 %; Platelet Count 292 k/uL (150-450); RBC 4.58 m/uL (3.80-5.40); RDW 15.2 % (11.5-15.5)
[2023-03-03 16:35] LABS: Partial Thromboplastin Time 22.3 sec (22.0-30.0); Prothrombin Time 10.3 sec (9.0-12.0)
[2023-03-03 16:43] LABS: Albumin 4.1 g/dL (3.5-5.0); Calcium 9.7 mg/dL (8.4-10.2); Potassium 3.9 mmol/L (3.5-5.1); Total Bilirubin 0.5 mg/dL (0.2-1.3); Total Protein 6.6 g/dL (6.3-8.2)
[2023-03-03 17:41] VITALS: BP 120/76; PULSE 89; TEMP 98.7
== END 2023-03-03 17:51 | disposition home or self-care (01) ==
LOC: EC 15:28
DX: G45.9 Transient cerebral ischemic attack, unspecified (principal); I67.82 Cerebral ischemia; Z87.891 Personal history of nicotine dependence; Z79.01 Long term (current) use of anticoagulants; Z79.82 Long term (current) use of aspirin
CPT/HCPCS: 36415; 70450; 71046; 80053; 84484; 85025; 85610; 85730; 93005; 96360; 99285